=== PATIENT | male | born 1960 | race Caucasian/White ===

== ENCOUNTER → 2019-11-26 | Day surgery (SDC) | payer BC ==
[~2019-11-26] MED LIST: Lactated Ringers 1,000 ML IV SCH; Propofol 200 MG/20 ML SDV IV ONE; fentaNYL 100 MCG/2 ML SDV IV ONE
--- NOTE | 2019-12-01 09:09 | OR ---
DATE OF OPERATION: 11/26/2019 PREOPERATIVE DIAGNOSIS: ABDOMINAL PAIN. POSTOPERATIVE DIAGNOSIS: ABDOMINAL PAIN. SURGEON: Edmundo Hunter MD PROCEDURE: DIAGNOSTIC ESOPHAGOGASTRODUODENOSCOPY WITH BIOPSIES X3, LEYLA. ANESTHESIA: MAC. COMPLICATIONS: None. SPECIMEN: 1. Antral biopsy x2. 2. Antral LEYLA. 3. Distal esophageal biopsy x1. FINDINGS: 1. Full-length EGD. 2. Mild to moderate active gastritis, antrum. 3. 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 RECOMMENDATIONS: Medical followup pending path report. INDICATIONS: The patient has been having some ongoing issues with epigastric and abdominal pain. We elected to proceed with diagnostic EGD. DESCRIPTION OF PROCEDURE: The patient was prepped and draped, placed in a left lateral decubitus position. A lubricated Olympus gastroscope was inserted over a bit, advanced to the cricopharyngeus area, and easily intubated into the esophagus. The esophageal lining was benign until its most distal portion was 1 small short segment of possible Villatoro's associated with some spontaneous reflux. No active esophagitis, inflammation, erythema, stricturing, or ulceration. I did do a biopsy of this. The scope was advanced into the stomach through the pylorus and into the 2nd portion of the duodenum. This and the duodenal bulb were benign. The scope was brought back into the stomach and retroflexed. The upper fundus and cardia appeared unremarkable. Upon straightening, the rest of the fundus was essentially benign. The antrum has some mild and active gastritis, more prominent around the pyloric area, and 2 biopsies were taken along with a LEYLA. Air was then suctioned, scope removed without complication. RAFAELA/JEANNINE /[id number]
== END ==
LOC: CC.SDS 08:45
PROVIDERS: ATTEND Family Medicine
DX: K29.50 Unspecified chronic gastritis without bleeding (principal); K22.8 Other specified diseases of esophagus; E78.00 Pure hypercholesterolemia, unspecified; E78.5 Hyperlipidemia, unspecified; Z11.59 Encounter for screening for other viral diseases
CPT/HCPCS: 00731; 87081; J2704; J3010; J7120; U0002

== ENCOUNTER → 2019-12-10 | Day surgery (SDC) | payer BC ==
[~2019-12-10] MED LIST changes: +Ketamine 200 MG/20 ML MDV IV ONE; -Lactated Ringers 1,000 ML IV SCH
[2019-12-10] MEDS: Lactated Ringers 1,000 ML IV SCH (09:37)
--- NOTE | 2019-12-10 12:19 | OR ---
DATE OF OPERATION: 12/10/2019 PREOPERATIVE DIAGNOSIS: ABNORMAL CT. POSTOPERATIVE DIAGNOSIS: ABNORMAL CT. SURGEON: Edmundo Hunter MD PROCEDURE: DIAGNOSTIC COLONOSCOPY WITH BIOPSIES X2, SNARE POLYP REMOVAL X3. ANESTHESIA: MAC. COMPLICATIONS: None. SPECIMEN: 1. Biopsy x2, terminal ileum. 2. Sessile polyp, proximal ascending colon. 3. Tubular adenoma, sigmoid. 4. Large tubular adenoma, rectosigmoid junction. RECOMMENDATIONS: Followup colonoscopy in 3 years pending Path reports. INDICATIONS: Mr. Ibrahim has been having some ongoing issues with abdominal pain. He had a CT scan which showed some possible inflammation of the terminal ileum. We elected to proceed with diagnostic colonoscopy. DESCRIPTION OF PROCEDURE: The patient was prepped and draped, placed in the left lateral decubitus position. A lubricated Olympus colonoscope was inserted and easily advanced to the cecum. We were able to directly visualize the ileocecal valve and appendiceal orifice. The bowel prep was adequate. The cecum itself appeared benign. We were able to intubate into the terminal ileum. No gross abnormalities were seen. Two biopsies were taken. In the proximal ascending colon, the patient had a small slightly stalked tubular adenoma probably 4 mm, removed with a snare and suctioned into polyp trap #1. The rest of the ascending and transverse colons were completely benign. In the descending area, no gross abnormalities were seen. Most of the sigmoid colon appeared benign. At its distal portion, the patient had a second tubular adenoma also removed with a snare and suctioned into polyp trap #2. In the rectosigmoid junction, the patient had a large tubulovillous adenoma approximately just over a cm in size. It was removed with a snare and pulled out through the rectum on the end of the scope. No other gross abnormalities were seen. The rectal vault appeared benign. Retroflexion showed no perianal lesions. Air was suctioned, scope removed without complication. RAFAELA/JEANNINE /[id number]
== END ==
LOC: CC.SDS 09:17
PROVIDERS: ATTEND Family Medicine
DX: D12.2 Benign neoplasm of ascending colon (principal); D12.5 Benign neoplasm of sigmoid colon; D12.7 Benign neoplasm of rectosigmoid junction; E78.00 Pure hypercholesterolemia, unspecified; E78.5 Hyperlipidemia, unspecified
CPT/HCPCS: 00812; J2704; J3010; J7120

== ENCOUNTER → 2021-06-01 | Day surgery (SDC) | payer BC ==
[~2021-06-01] MED LIST changes: -Ketamine 200 MG/20 ML MDV IV ONE; +Ketamine 200 MG/20 ML MDV ONE; +Lactated Ringers 1,000 ML IV SCH; +Lidocaine 2% 5 ML SDV ONE; -Propofol 200 MG/20 ML SDV IV ONE; +Propofol 200 MG/20 ML SDV ONE; -fentaNYL 100 MCG/2 ML SDV IV ONE; +fentaNYL 100 MCG/2 ML SDV ONE
== END ==
LOC: CC.SDS 07:39
PROVIDERS: ATTEND Family Medicine
DX: K29.50 Unspecified chronic gastritis without bleeding (principal); K22.70 Barrett's esophagus without dysplasia; K21.9 Gastro-esophageal reflux disease without esophagitis; R13.10 Dysphagia, unspecified; G89.29 Other chronic pain; N40.1 Benign prostatic hyperplasia with lower urinary tract symptoms; R35.1 Nocturia; E78.00 Pure hypercholesterolemia, unspecified; E78.5 Hyperlipidemia, unspecified; E55.9 Vitamin D deficiency, unspecified; Z79.899 Other long term (current) drug therapy; Z98.890 Other specified postprocedural states
CPT/HCPCS: 43239; 45380; 87081; J2704; J3010; J7120